=== PATIENT | female | born 1960 | race African-American/Black ===

== ENCOUNTER 2020-08-19 06:31 | Emergency (ER) | payer OTHER ==
[~2020-08-19] VITALS: Ht 165.1 cm; Wt 111.1 kg
[2020-08-19 07:14] LABS: ABSOLUTE NEUTROPHILS 2.6 thou/uL (1.4-8.2); EOSINOPHILS 1.7 % (0.0-3.0); HEMATOCRIT 42.5 % (37.0-47.0); HEMOGLOBIN 13.7 gm/dL (12.0-15.0); LYMPHOCYTES 48.8 % (24.0-44.0); MCH 28.8 pg (26.0-34.0); MCHC 32.3 g/dL (28.0-37.0); MCV 89.1 fL (80.0-100.0); PLATELET COUNT 185 thou/uL (150-400); POLYS 39.5 % (36.0-66.0); RBC 4.77 mil/uL (4.20-5.00); RDW 13.5 % (10.5-14.5); WBC 6.5 thou/uL (4.0-11.0)
--- NOTE | 2020-08-19 07:23 | EKG ---
[address] [address] ELECTROCARDIOGRAM REPORT Name: CAROLINEFELIPE L Room #: [facility]#: [id number] Admission: Attend Phys: Discharge: Date of : 56 Report #: [id number] [facility] ED Test Date: 2020-08-19 Test Time: 06:38:27 Pat Name: FELIPE VELAZQUEZ Department: Room: Gender: F Bookkeeper Assistant: : 1960 Requested By: Hiren King Order Number: [id number] MD: Simba Kay Measurements Intervals [place] Rate: 59 P: 47 CO: 178 QRS: 20 QRSD: 93 T: 54 QT: 419 QTc: 415 Interpretive Statements Sinus rhythm Probable left atrial enlargement Nonspecific T abnrm, anterolateral leads No previous ECG available for comparison Electronically Signed On 08-19-2020 7:23:08 CDT by Simba Kay [email or web address] <ELECTRONICALLY SIGNED> By: Simba Kay MD, [facility] 08/19/20 0723 0638 0638 Simba Kay MD, FACC /EPI
[2020-08-19 07:26] LABS: ANION GAP 7 mmol/L (7-16); BUN 14 mg/dL (7-18); CALCIUM 9.1 mg/dL (8.5-10.1); CHLORIDE 104 mmol/L (98-107); CO2 29 mmol/L (21-32); CREATININE 1.1 mg/dL (0.6-1.0); GLUCOSE 99 mg/dL (74-106); POTASSIUM 3.8 mmol/L (3.5-5.1); SODIUM 140 mmol/L (136-145)
[2020-08-19 07:35] LABS: ALBUMIN 3.7 g/dL (3.4-5.0); LIPASE 75 U/L (73-393); SGOT 20 U/L (15-37); SGPT 28 U/L (14-59); TOTAL BILIRUBIN 0.7 mg/dL (0.2-1.0); TOTAL PROTEIN 8.2 g/dL (6.4-8.2); TROPONIN-I <0.06 ng/mL (<0.06)
[2020-08-19] MEDS ORDERED: ASA81BEC PO (10:37)
[2020-08-19 10:39] VITALS: BP 131/69
== END 2020-08-19 10:39 | disposition home or self-care (01) ==
LOC: ER 06:31
PROVIDERS: Emergency Medicine
DX: R07.89 Other chest pain (principal)